=== PATIENT | female | born 1960 | race Caucasian/White ===

== ENCOUNTER 2017-10-24 10:13 | Observation (INO) | payer MEDICAID, SELFPAY ==
[2017-10-24] VITALS (13 sets, daily range): BP systolic 106–150; BP diastolic 62–85; PULSE 57–94; RESP 14–18; TEMP 36.2–36.9; O2SAT 91–98; BMI 32.4; BMI 32.3
--- NOTE | 2017-10-24 10:34 | EKG12_ITS ---
Test Reason : DIZZINESS Blood Pressure : / mmHG Vent. Rate : 075 BPM Atrial Rate : 075 BPM P-R Int : 160 ms QRS Dur : 088 ms QT Int : 394 ms P-R-T Axes : 057 070 036 degrees QTc Int : 439 ms Normal sinus rhythm Low voltage QRS (LIMB LEADS) Confirmed by JODY WHITMORE, MARIAM ([id number]), scientific publications editor SEPIDEH VERDE ([id number]) on 10/28/2017 2:16:49 PM Referred By: SHARON Confirmed By:MARIAM VERA MD
--- NOTE | 2017-10-24 10:34 | CT_ITS ---
STUDY: CT BRAIN WITHOUT CONTRAST REASON FOR EXAM: Female, 56 years old. Dizziness and headaches RADIATION DOSAGE (If Supplied By Facility): CTDIvol = ( 44.99 ) mGy, DLP = ( 745.49 ) mGycm TECHNIQUE: Transaxial CT imaging of the brain was performed without administration of intravenous contrast material. Individualized dose optimization techniques were used for this CT. COMPARISON: None. FINDINGS: No evidence for shift of midline structures, mass effect or compression of ventricles noted. Low-attenuation area in noted in the right cerebellum measuring approximately 1.3 cm possibly subacute infarct however underlying mass is not excluded. Please consider MRI exam. The ventricular system appears unremarkable. Basal cisterns are patent. No acute intra-articular extra-axial hemorrhage. Calvarium is intact. Visualized paranasal sinuses demonstrate minimal mucosal thickening. The mastoid air cells are clear. IMPRESSION: Approximately 1.3 cm low-attenuation focus in the right posterior medial cerebellar possibly subacute infarct however underlying mass is not excluded. Please consider MRI exam of the brain with and without IV contrast. No evidence for intracranial hemorrhage. No seen on shift of midline structures or mass effect Electronically Signed: Sony Hays, at 12:01 EDT Tel , Service support , CT/Brain/Head without Contrast
[2017-10-24] MEDS: Meclizine HCl 25 MG Tablet PO ×2 (11:02→17:20)
[2017-10-24] MEDS: 0.9% Normal Saline 1,000 ML 150 ML IV (11:02)
[2017-10-24] MEDS: Ondansetron 4 MG/2 ML Vial IV (11:02)
[2017-10-24 11:18] LABS: Absolute Lymphocyte Count 1.89 X10^3/ul (0.83-4.51); Absolute Neutrophil Count 6.6 X10^3/uL (2.0-7.7); Basophil# 0.03 X10^3/uL; Basophil% 0.3 % (0-1); Eosinophil# 0.05 X10^3/uL; Eosinophils% 0.6 % (0-5); Hematocrit 41.8 % (37-47); Hemoglobin 14.4 g/dl (12.0-15.0); Lymphocyte # 1.89 X10^3/ul (4.0); Lymphocyte % 21.1 % (19-41); Mean Corp Hgb Conc 34.4 g/gl (32-36); Mean Corpuscular Hgb 29.9 pg (27.0-32.0); Mean Corpuscular Volume 86.7 fL (81-99); Mean Platelet Vol. 9.3 fl (6.2-12.0); Monocyte# 0.38 X10^3/uL; Monocyte% 4.2 % (0-10); Neutrophil % 73.8 % (47-70); Platelet Count 317 K/mm3 (150-450); RBC Distribution Width CV 13.3 % (11.6-14.6); RBC Distribution Width SD 41.8 fl (35.1-43.9); Red Blood Count 4.82 M/mm3 (4.2-5.4)
[2017-10-24 11:21] LABS: POSITIVE COUNT NO; POSITIVE DIFFERENTIAL NO; POSITIVE MORPHOLOGY NO
[2017-10-24 11:34] LABS: Anion Gap 7 (5-15); BUN 17 mg/dL (7-18); BUN/Creat Ratio 17.5 RATIO (10-20); Calcium,Total 9.3 mg/dL (8.5-10.1); Chloride 106 mmol/L (98-107); Creatinine, Serum 0.97 mg/dL (0.55-1.02); EST Glomerular Filtration Rate 63 mL/min (>60); Est Glom Filt Rate - Afr Amer 76 mL/min (>60); Estimated Creatinine Clearance 56.89 ml/min; Glucose 116 mg/dL (74-106); Potassium 3.5 mmol/L (3.5-5.1); Sodium Level 138 mmol/L (136-145)
[2017-10-24] MEDS: Acetaminophen 325 MG Tablet 650 MG PO (12:02)
--- NOTE | 2017-10-24 12:17 | ED.DCSUM_ITS ---
- ER Visit Summary Date of Service: 10/24/17 Chief Complaint: [Dizziness] History of Present Illness: The patient is a 56 F [presents to the emergency department complaint of dizziness that started around 6 AM. Patient states that she woke up with the symptoms. She was initially dizzy when she woke up and when she sat on the side of the bed. Patient describes nausea with it. Patient described feeling somewhat off balance. She has not had symptoms like this before. No recent illness. Patient denies any falls or head injuries. Patient has difficulty with speech or vision.] Physical Examination: [HEENT-PERRLA, EOMI. Cranial nerves II through XII grossly intact. TMs clear. Mucous membranes moist. No adenopathy. Cardiovascular-regular rate and rhythm without murmur or ectopy Lungs-clear to auscultation, chest wall stable without crepitus or subcu emphysema Abdomen-normoactive bowel sounds, soft, nontender, no rebound or rigidity, no peritoneal signs. Neuro sbnx-qhcpsa-anmf and heel to wu testing within normal limits, negative Romberg, negative for drift, fundi benign. NIH stroke scale is 0. Patient had a Hallpike maneuver performed which did elicit nystagmus when patient looking to the left and right. Extremities-intact ?4, normal range of motion, normal pulses, atraumatic] Test Results: [CT scan of the brain without contrast read by radiology as 1.3 cm low-attenuation focus in the right cerebellum cannot rule out subacute infarct versus mass and recommended obtaining MRI of the brain with and without contrast. EKG obtained showed sinus rhythm with a ventricular rate 75 bpm. Chemistries were unremarkable. CBC with differential unremarkable. Troponin was less than 0.015.] Emergency Department Course and Treatment: [Patient is not a thrombolytic candidate as it is unclear when symptoms began I saw her at 1026 and she had had symptoms at that point for 4-1/2 hours. Patient also woke up with symptoms. NIH stroke scale also is 0 here. Patient case discussed with hospitalist will he evaluate patient and admit to hospital for further workup.] Patient was medicated with Antivert and did have good symptomatic relief of her dizziness. Still feeling slightly dizzy but much improved. Treatment Plan: [Admit for further workup including MRI brain.] Disposition: [Admit] Impression: [Dizziness/vertigo-rule out stroke versus cerebellar mass] This note was generated with [employer] dictation software. It may contain incorrect words, spelling, and punctuation that were not noted in review of the chart prior to signing ED Disposition - Plan for ED Patient: Chief Complaint: Dizziness Referrals: Kareen Cooper MD [Primary Care Provider] -
--- NOTE | 2017-10-24 12:28 | HP.PCM_ITS ---
Problem List (1) HTN (hypertension) Status: Chronic (2) HLD (hyperlipidemia) Status: Chronic (3) Vertigo Status: Acute (4) Allergic rhinitis Status: Chronic (5) Chronic migraine Status: Chronic (6) Tobacco dependence Status: Chronic History of Present Illness Date of Admission: 10/24/17 Chief Complaint: Dizziness, vertigo. The patient is a 56 year old F who presents to the emergency room with dizziness which began this morning. Patient states she felt like she was going to pass out. Complains of headache although she states she does get migraines intermittently associated with rain. She denies blurred vision, slurred speech , weakness. She states last summer she had similar symptoms and came to the emergency room where she was told she was dehydrated and to drink extra fluids during the warm weather. She states she attempted to drink fluids this morning with no improvement and dizziness. She denies syncope. Denies chest pain, shortness of breath. She has a past medical history of hypertension, hyperlipidemia, tobacco dependence, allergic rhinitis, chronic migraines. Past Medical History Past Medical History (Chronic Problems): Chronic Problems HTN (hypertension) (Chronic) HLD (hyperlipidemia) (Chronic) Allergic rhinitis (Chronic) Chronic migraine (Chronic) Tobacco dependence (Chronic) Allergies meloxicam Allergy (Verified 10/24/17 10:17) Hives Home Medications: Ambulatory Orders Medication Instructions Recorded Lisinopril/Hydrochlorothiazide 1 each PO DAILY 05/09/15 [Zestoretic 20-12.5 mg Tablet] Lovastatin [Mevacor] 20 mg PO DAILY 05/09/15 Naproxen [Naprosyn] 250 mg PO DAILY PRN PRN 05/09/15 Tylenol Pm Ex-Strength Caplet 2 tab PO QHS PRN 10/24/17 Surgical History: no surgical history Psychiatric History: No pertinent psych hx Lives: Spouse/ Significant Other Smoking Status: Current every day smoker Alcohol: None Drugs: None - *Family History Maternal History Items: No pertinent history Paternal History Items: Unknown - Father , unknown cause. Review of Systems Constitutional: Denies: Chills, Fever, Weight Change HEENT: Reports: Head Aches. Denies: Sinus Congestion, Sinus Drainage Cardiovascular: Denies: Chest Pain, Palpitations Respiratory: Denies: Cough, Shortness of breath at rest, Sputum production Gastrointestinal: Denies: Abdominal Pain, Nausea, Vomiting Genitourinary: Denies: Dysuria Musculoskeletal: Denies: Joint Pain, Joint Tenderness Skin: Denies: Rash, Wounds Neurological: Reports: - - Dizziness. Denies: Blurred vision, Slurred speech, Focal weakness, Numbness, Tingling Psychiatric: Denies: Anxiety, Depression, Homicidal Ideations, Suicidal Ideations Hematologic/ Lymphatic: Denies: Easy Bruising, Easy Bleeding VTE Information - Inpt Only VTE Present on Admission: No VTE Mechan Device Prophylaxis: None VTE Pharm Prophylaxis ordered?: Yes Patient Problems: Active and Suspected Problems Vertigo (Acute) - Physical Exam General: Alert, Oriented x3, Cooperative HEENT: Atraumatic, PERRLA, EOMI, Normocephalic Neck: Supple, No JVD, Negative Carotid Bruits Lungs: Clear to auscultation, Normal air movement Cardiovascular: Regular rate, Regular Rhythm, Normal S1, Normal S2, No murmurs Abdomen: Bowel Sounds Present, Soft, Non Tender, Non-Distended Extremities: No clubbing, No cyanosis, No edema, Capillary Refill Less than 3 Seconds Skin: No rashes, No breakdown Musculoskeletal: No Tenderness to Palpation of Joints or Extremities Neurological: Cranial nerves II-XII grossly intact, Neuro grossly intact Psych/Mental Status: Normal Affect, Appropriate Vital Signs Temp Pulse Resp BP Pulse Ox 98.0 F 80 18 129/81 H 93 10/24/17 10:14 10/24/17 10:17 10/24/17 10:17 10/24/17 10:17 10/24/17 10:17 Oxygen Delivery Method Room Air Weight: 88.451 kg Body Mass Index (BMI) 32.4 Laboratory Tests Past 24 Hrs 10/24/17 10/24/17 11:05 11:05 WBC 9.0 RBC 4.82 Hgb 14.4 Hct 41.8 MCV 86.7 MCH 29.9 MCHC 34.4 RDW 13.3 RDW Differential 41.8 Plt Count 317 MPV 9.3 Immature Gran % (Auto) 0.000 Neut % (Auto) 73.8 H Lymph % (Auto) 21.1 [place] % (Auto) 4.2 Eos % (Auto) 0.6 Baso % (Auto) 0.3 Absolute Neuts (auto) 6.6 Absolute Lymphs (auto) 1.89 Total Counted Not Reportable Sodium 138 Potassium 3.5 Chloride 106 Carbon Dioxide 25.0 Anion Gap 7 BUN 17 Creatinine 0.97 Estim Creat Clear Calc 56.89 Est GFR (MDRD) Af Amer 76 Est GFR (MDRD) Non-Af 63 BUN/Creatinine Ratio 17.5 Glucose 116 H Calcium 9.3 Troponin I < 0.015 Assessment/Plan Active and Suspected Problems Vertigo (Acute) 1. Vertigo, dizziness-rule out stroke versus cerebellar mass. Brain CT shows low-attenuation area noted in the right cerebellum measuring approximately 1.3 cm. Possibly subacute infarct however underlying mass cannot be excluded. MRI ordered and pending. Scheduled meclizine. Zofran as needed. Continue aspirin , statin. Obtain echocardiogram. Neurology consulted. [facility]/OT/[facility]. 2. Hypertension-stable, continue home lisinopril/HCTZ regimen. 3. Hyperlipidemia-home statin regimen increased. Check lipid panel. 4. Tobacco dependence-encourage smoking cessation. Patient declines nicotine replacement patch. 5. Allergic rhinitis-not on daily regimen. 6. Chronic migraines-as needed pain regimen. DVT prophylaxis-Lovenox subcu. This patient was seen by ESTIVEN Tyler under the supervision of Dr. Fatima.
--- NOTE | 2017-10-24 14:42 | CT_ITS ---
STUDY: CT BRAIN WITH CONTRAST REASON FOR EXAM: Female, 56 years old. Possible mass RADIATION DOSAGE (If Supplied By Facility): CTDIvol = ( 44.99 ) mGy, DLP = ( 728.62 ) mGycm TECHNIQUE: Transaxial CT imaging of the brain was performed post contrast administration. The examination was performed with intravenous administration of 75mL ml of Isovue 300 contrast material. Individualized dose optimization techniques were used for this CT. COMPARISON: Unenhanced CAT scan on October 24, 2017 FINDINGS: Normal soft tissue structures. Normal calvarium. Normal size ventricles and extra-axial spaces for the patient's age. Normal white matter tracts of the cerebral hemispheres. Normal basal ganglia and thalami. Normal brainstem. There is focal hypoattenuation within the right cerebellar hemisphere without associated mass effect and which does not appear to enhance and most likely represents ischemic changes. There is no intracranial hemorrhage. There are no findings of an acute ischemic infarction. Minor mucosal thickening within the maxillary sinuses. CT/Brain/Head WITH Contrast IMPRESSION: Probable ischemic changes within the right cerebellar hemisphere. MRI would be helpful for further assessment if indicated Electronically Signed: José Jay MD at 23:24 EDT , Service support ,
[2017-10-24] MEDS: 0.9% Normal Saline 1,000 ML 100 ML IV (15:02)
[2017-10-24 15:28] LABS: Hemoglobin A1c 5.7 % (4.2-6.3)
[2017-10-24 15:30] LABS: Magnesium 1.8 mg/dL (1.6-2.6); Thyroid Stim Hormone (TSH) 1.34 uIU/mL (0.358-3.74)
[2017-10-24] MEDS: Famotidine 20 MG Tablet PO (20:38)
[2017-10-24] MEDS: Aspirin 81 MG TAB.CHEW PO (20:38)
[2017-10-25] VITALS (9 sets, daily range): BP systolic 102–129; BP diastolic 49–83; PULSE 58–74; RESP 16; TEMP 36.7–36.8; O2SAT 96–98; BMI 32.3
[2017-10-25] MEDS: Meclizine HCl 25 MG Tablet PO ×2 (00:51→05:16)
[2017-10-25] MEDS: 0.9% Normal Saline 1,000 ML 100 ML IV (01:33)
[2017-10-25 06:57] LABS: Hematocrit 38.6 % (37-47); Hemoglobin 13.1 g/dl (12.0-15.0); Mean Corp Hgb Conc 33.9 g/gl (32-36); Mean Corpuscular Hgb 30.1 pg (27.0-32.0); Mean Corpuscular Volume 88.7 fL (81-99); Mean Platelet Vol. 9.7 fl (6.2-12.0); Platelet Count 296 K/mm3 (150-450); RBC Distribution Width CV 13.5 % (11.6-14.6); RBC Distribution Width SD 43.4 fl (35.1-43.9); Red Blood Count 4.35 M/mm3 (4.2-5.4); White Blood Count 8.4 K/mm3 (4.4-11.0)
[2017-10-25 07:13] LABS: Scan Indicated on CBC? Y/N NO
[2017-10-25 07:33] LABS: Anion Gap 5 (5-15); BUN 14 mg/dL (7-18); BUN/Creat Ratio 16.7 RATIO (10-20); Calcium,Total 8.5 mg/dL (8.5-10.1); Chloride 114 mmol/L (98-107); Cholesterol 193 mg/dL (200); Creatinine, Serum 0.84 mg/dL (0.55-1.02); EST Glomerular Filtration Rate 74 mL/min (>60); Est Glom Filt Rate - Afr Amer 90 mL/min (>60); Estimated Creatinine Clearance 65.69 ml/min; Glucose 83 mg/dL (74-106); High Density Lipoprotein 42 mg/dL; Potassium 3.8 mmol/L (3.5-5.1); Sodium Level 143 mmol/L (136-145); Triglycerides 205 mg/dL; Very Low Density Lipoprotein 41 mg/dL (5-40)
[2017-10-25] MEDS: Aspirin 81 MG TAB.CHEW PO (07:52)
--- NOTE | 2017-10-25 09:04 | MRI_ITS ---
STUDY: MRA OF THE HEAD WITHOUT CONTRAST REASON FOR EXAM: Female, 56 years old. CVA. Dizziness TECHNIQUE: 3-D rxpw-ur-ksfbih (TOF) imaging was performed with MIPs. The study was performed unenhanced. COMPARISON: None. FINDINGS: Petrous, cavernous and supraclinoid segments of the internal carotid arteries are patent Middle and anterior cerebral arteries are patent. Posterior circulation: Anterolateral segments of the vertebral arteries are patent the vertebrobasilar junction is patent. The basilar artery is patent posterior cerebral arteries are patent. The superior cerebellar arteries are patent. Anterior inferior cerebellar arteries are patent. Somewhat motion degraded MRA examination of the head IMPRESSION: No evidence for intracranial large vessel occlusion seen Electronically Signed: Sony Hays, at 10:39 EDT Tel , Service support , MRI/MRA Head ONLY without Contrast
--- NOTE | 2017-10-25 09:04 | MRI_ITS ---
STUDY: MRA NECK WITH AND WITHOUT CONTRAST REASON FOR EXAM: Female, 56 years old. TECHNIQUE: 3-D evhr-qc-xylorx (TOF) imaging was performed in an 1.5 T MRI scanner. 10 ml of Gadavist was administered for the contrast enhanced images. COMPARISON: None. FINDINGS: RIGHT CAROTID ARTERIES: Normal right common carotid artery (CCA). Normal right common carotid bulb. Normal origin of the right internal carotid (ICA) artery without a hemodynamically significant stenosis. Normal visualized cervical portion of the right internal carotid artery. Normal origin of the right external carotid artery (ECA). LEFT CAROTID ARTERIES: Normal left common carotid artery (CCA). Normal left common carotid bulb. Normal origin of the left internal carotid (ICA) artery without a hemodynamically significant stenosis. Normal visualized cervical portion of the left internal carotid artery. Normal origin of the left external carotid artery (ECA). VERTEBRAL ARTERIES: Narrowing at the origin of the left vertebral artery seen. Remaining segments of the vertebral arteries are patent. The right vertebral artery is patent. MRI/MRA Neck WITH and W/O Contrast IMPRESSION: No evidence for cervical carotid or vertebral artery occlusion. Mild apparent narrowing at the origin of the left vertebral artery. Electronically Signed: Sony Hays, at 10:45 EDT Tel , Service support ,
--- NOTE | 2017-10-25 09:16 | MRI_ITS ---
STUDY: MRI BRAIN WITH AND WITHOUT CONTRAST REASON FOR EXAM: Female, 56 years old. Dizziness TECHNIQUE: Standardized multiplanar fat and water weighted pulse sequences were obtained. 10 ml of Gadavist contrast material was administered intravenously for the contrast portion of the examination. COMPARISON: CT examination of the head October 24, 2017 FINDINGS: No evidence for shift of midline structures, mass effect or compression of ventricles noted. No acute intra-axial or extra-axial hemorrhage. No evidence for intracranial fluid collections. Ventricular system appears unremarkable. Basal cisterns are patent. Encephalomalacia and gliosis in the right cerebellum likely chronic small infarct. Partially empty sella noted. Scattered foci of T2/FLAIR hyperintensity in the periventricular and subcortical white matter which are nonspecific in imaging appearance however most likely related with chronic small vessel disease. Skull base vascular flow voids are patent. Mild mucosal thickening of the ethmoid air cells and the maxillary sinuses. No evidence for cerebellar tonsillar herniation. No evidence for acute or subacute ischemic insult. No evidence for intracranial enhancing mass or acute hemorrhage. Mild chronic small vessel disease. 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 Electronically Signed: Sony Hays, at 10:53 EDT Tel , Service support , MRI/Brain W/WO Contrast
--- NOTE | 2017-10-25 10:49 | PCM.DC ---
- Discharge Diagnoses Current Active Problems: Current Active and Chronic Problems HTN (hypertension) (Chronic) HLD (hyperlipidemia) (Chronic) Vertigo (Acute) Allergic rhinitis (Chronic) Chronic migraine (Chronic) Tobacco dependence (Chronic) You will use the following diet at home:: Cardiac Discharge Activity: Return to Normal Activity Call your doctor if you observe: Numbness or Tingling, Shortness of breath, Dizziness, Fainting spells, Chest pain, Increased palpitations (irregular heartbeat) Allergies/Adverse Reactions: Allergies meloxicam Allergy (Verified 10/24/17 10:17) Hives Medications to take at Discharge Lisinopril/Hydrochlorothiazide [Zestoretic 20-12.5 mg Tablet] 1 each PO DAILY 05/09/15 Naproxen [Naprosyn] 500 mg PO DAILY PRN PRN 05/09/15 Aspirin [Aspirin, Baby] 81 mg PO DAILY@0800 #30 tab.chew 10/25/17 Atorvastatin Calcium [Lipitor] 80 mg PO DAILY #30 tab 10/25/17 The following prescriptions were given: Aspirin [Aspirin, Baby] 81 mg PO DAILY@0800 #30 tab.chew Atorvastatin Calcium [Lipitor] 80 mg PO DAILY #30 tab Primary Care Physician: Kareen Cooper MD [Primary Care Provider] - Please follow up with your Primary Care Physician in: 1 Week Please Follow Up With: Alisa Henley MD When: 2-4 Weeks Proposed Discharge Date: 10/25/17
--- NOTE | 2017-10-25 10:51 | PCM.DC.SUM ---
Discharge Date and Diagnosis Date of Admission: 10/24/17 Date of Discharge: 10/25/17 - Primary Discharge Diagnosis Active and Suspected Problems 1. Vertigo, dizziness-acute CVA ruled out. Possible TIA versus atypical migraine. - Secondary Discharge Diagnosis Chronic Problems HTN (hypertension) (Chronic) HLD (hyperlipidemia) (Chronic) Allergic rhinitis (Chronic) Chronic migraine (Chronic) Tobacco dependence (Chronic) Hospital Course and Treatment Imaging Results: Diagnostic Data Brain CT 10/24/17 14:42 IMPRESSION: Probable ischemic changes within the right cerebellar hemisphere. MRI would be helpful for further assessment if indicated Electronically Signed: José Jay MD at 23:24 EDT , Service support , Head MRA 10/25/17 09:04 Neck MRA 10/25/17 09:04 IMPRESSION: No evidence for cervical carotid or vertebral artery occlusion. Mild apparent narrowing at the origin of the left vertebral artery. Electronically Signed: Sony Hays at 10:45 EDT Tel , Service support , Brain MRI 10/25/17 09:16 Dr. Mauro- Neurology Operations: None Procedures: None Summary of Care Provided: Patient is a 56-year-old female admitted 10/24/2017 due to dizziness, vertigo. She has a past medical history of hypertension, hyperlipidemia, tobacco dependence, allergic rhinitis, chronic migraines. 1. Vertigo, dizziness-acute CVA ruled out. Suspect TIA versus atypical migraine. Patient has a history of migraines which she states occur before it rains. Brain CT shows low-attenuation area noted in the right cerebellum measuring approximately 1.3 cm. Possibly subacute infarct however underlying mass cannot be excluded. Neurology consulted. MRI of brain unremarkable. MRA of head and neck without significant stenosis. Patient will continue aspirin and statin at discharge. Echocardiogram ordered but not completed prior to discharge. Recommend echocardiogram as outpatient to be ordered by primary care physician or neurology. Patient will follow-up with primary care physician in 1 week. Follow-up with neurology in 2-4 weeks. Patient denies further dizziness at discharge. Neuro grossly intact. 2. Hypertension-stable, continue home lisinopril/HCTZ regimen. 3. Hyperlipidemia-home statin regimen increased to 80 mg daily. 4. Tobacco dependence-encourage smoking cessation. 5. Allergic rhinitis-not on daily regimen. 6. Chronic migraines General: Alert, Oriented x3, Cooperative HEENT: Atraumatic, PERRLA, EOMI, Normocephalic Neck: Supple, No JVD, Negative Carotid Bruits Lungs: Clear to auscultation, Normal air movement Cardiovascular: Regular rate, Regular Rhythm, Normal S1, Normal S2, No murmurs Abdomen: Bowel Sounds Present, Soft, Non Tender, Non-Distended Extremities: No clubbing, No cyanosis, No edema, Capillary Refill Less than 3 Seconds Skin: No rashes, No breakdown Musculoskeletal: No Tenderness to Palpation of Joints or Extremities Neurological: Cranial nerves II-XII grossly intact, Neuro grossly intact Psych/Mental Status: Normal Affect, Appropriate Patient seen exam prior to discharge. Physical assessment as noted above. Patient stable for discharge home with further follow-up primary care physician and neurology. This patient was seen by ESTIVEN Tyler under the supervision of Dr. Fatima. Discharge Diet: Low fat/ Low Cholesterol Discharge Activity: Return to Normal Activity Call your doctor if you observe: Numbness or Tingling, Shortness of breath, Dizziness, Fainting spells, Chest pain, Increased palpitations (irregular heartbeat) Home Medications: Medications to take at Discharge Lisinopril/Hydrochlorothiazide [Zestoretic 20-12.5 mg Tablet] 1 each PO DAILY 05/09/15 Naproxen [Naprosyn] 500 mg PO DAILY PRN PRN 05/09/15 Aspirin [Aspirin, Baby] 81 mg PO DAILY@0800 #30 tab.chew 10/25/17 Atorvastatin Calcium [Lipitor] 80 mg PO DAILY #30 tab 10/25/17 Following Prescrptions Were Given to Patient: Aspirin [Aspirin, Baby] 81 mg PO DAILY@0800 #30 tab.chew Atorvastatin Calcium [Lipitor] 80 mg PO DAILY #30 tab Primary Care Physician: Kareen Cooper MD [Primary Care Provider] - Please follow up with your Primary Care Physician in: 1 Week Please Follow Up With: Alisa Henley MD When: 2-4 Weeks Disposition: Home Minutes spent on discharge:: 35 Patient Condition:: Stable Medical Necessity - Tobacco Use Smoking Status: Current every day smoker Meaningful Use Info Meaningful Use Diagnoses (Choose all that apply): None applicable
--- NOTE | 2017-10-25 11:04 | DS.PCM_ITS ---
Discharge Date and Diagnosis Date of Admission: 10/24/17 Date of Discharge: 10/25/17 - Primary Discharge Diagnosis Active and Suspected Problems 1. Vertigo, dizziness-acute CVA ruled out. Possible TIA versus atypical migraine. - Secondary Discharge Diagnosis Chronic Problems HTN (hypertension) (Chronic) HLD (hyperlipidemia) (Chronic) Allergic rhinitis (Chronic) Chronic migraine (Chronic) Tobacco dependence (Chronic) Hospital Course and Treatment Imaging Results: Diagnostic Data Brain CT 10/24/17 14:42 IMPRESSION: Probable ischemic changes within the right cerebellar hemisphere. MRI would be helpful for further assessment if indicated Electronically Signed: José Jay MD at 23:24 EDT , Service support , Head MRA 10/25/17 09:04 Neck MRA 10/25/17 09:04 IMPRESSION: No evidence for cervical carotid or vertebral artery occlusion. Mild apparent narrowing at the origin of the left vertebral artery. Electronically Signed: Sony Hays at 10:45 EDT Tel , Service support , Brain MRI 10/25/17 09:16 Dr. Mauro- Neurology Operations: None Procedures: None Summary of Care Provided: Patient is a 56-year-old female admitted 10/24/2017 due to dizziness, vertigo. She has a past medical history of hypertension, hyperlipidemia, tobacco dependence, allergic rhinitis, chronic migraines. 1. Vertigo, dizziness-acute CVA ruled out. Suspect TIA versus atypical migraine. Patient has a history of migraines which she states occur before it rains. Brain CT shows low-attenuation area noted in the right cerebellum measuring approximately 1.3 cm. Possibly subacute infarct however underlying mass cannot be excluded. Neurology consulted. MRI of brain unremarkable. MRA of head and neck without significant stenosis. Patient will continue aspirin and statin at discharge. Echocardiogram ordered but not completed prior to discharge. Recommend echocardiogram as outpatient to be ordered by primary care physician or neurology. Patient will follow-up with primary care physician in 1 week. Follow-up with neurology in 2-4 weeks. Patient denies further dizziness at discharge. Neuro grossly intact. 2. Hypertension-stable, continue home lisinopril/HCTZ regimen. 3. Hyperlipidemia-home statin regimen increased to 80 mg daily. 4. Tobacco dependence-encourage smoking cessation. 5. Allergic rhinitis-not on daily regimen. 6. Chronic migraines General: Alert, Oriented x3, Cooperative HEENT: Atraumatic, PERRLA, EOMI, Normocephalic Neck: Supple, No JVD, Negative Carotid Bruits Lungs: Clear to auscultation, Normal air movement Cardiovascular: Regular rate, Regular Rhythm, Normal S1, Normal S2, No murmurs Abdomen: Bowel Sounds Present, Soft, Non Tender, Non-Distended Extremities: No clubbing, No cyanosis, No edema, Capillary Refill Less than 3 Seconds Skin: No rashes, No breakdown Musculoskeletal: No Tenderness to Palpation of Joints or Extremities Neurological: Cranial nerves II-XII grossly intact, Neuro grossly intact Psych/Mental Status: Normal Affect, Appropriate Patient seen exam prior to discharge. Physical assessment as noted above. Patient stable for discharge home with further follow-up primary care physician and neurology. This patient was seen by ESTIVEN Tyler under the supervision of Dr. Fatima. Discharge Diet: Low fat/ Low Cholesterol Discharge Activity: Return to Normal Activity Call your doctor if you observe: Numbness or Tingling, Shortness of breath, Dizziness, Fainting spells, Chest pain, Increased palpitations (irregular heartbeat) Home Medications: Medications to take at Discharge Lisinopril/Hydrochlorothiazide [Zestoretic 20-12.5 mg Tablet] 1 each PO DAILY Naproxen [Naprosyn] 500 mg PO DAILY PRN PRN 05/09/15 Aspirin [Aspirin, Baby] 81 mg PO DAILY@0800 #30 tab.chew 10/25/17 Atorvastatin Calcium [Lipitor] 80 mg PO DAILY #30 tab 10/25/17 Following Prescrptions Were Given to Patient: Aspirin [Aspirin, Baby] 81 mg PO DAILY@0800 #30 tab.chew Atorvastatin Calcium [Lipitor] 80 mg PO DAILY #30 tab Primary Care Physician: Kareen Cooper MD [Primary Care Provider] - Please follow up with your Primary Care Physician in: 1 Week Please Follow Up With: Alisa Henley MD When: 2-4 Weeks Disposition: Home Minutes spent on discharge:: 35 Patient Condition:: Stable Medical Necessity - Tobacco Use Smoking Status: Current every day smoker Meaningful Use Info Meaningful Use Diagnoses (Choose all that apply): None applicable
[2017-10-25] MEDS: Atorvastatin Calcium 80 MG Tablet PO (11:21)
== END 2017-10-25 11:25 | disposition home or self-care (01) ==
LOC: ED 12:36 → PCU 13:38
PROVIDERS: Admitting Provider Family Medicine; Emergency Provider Emergency Medicine; Family Provider Internal Medicine; PCP Internal Medicine; Visit Provider Family Medicine
DX: R42 Dizziness and giddiness (principal); I10 Essential (primary) hypertension; E78.5 Hyperlipidemia, unspecified; Z79.899 Other long term (current) drug therapy; E66.9 Obesity, unspecified; Z68.32 Body mass index [BMI] 32.0-32.9, adult; Z71.3 Dietary counseling and surveillance; F17.200 Nicotine dependence, unspecified, uncomplicated; G43.909 Migraine, unspecified, not intractable, without status migrainosus
CPT/HCPCS: 70450; 70460; 70544; 70549; 70553; 80048; 80061; 83036; 83735; 84443; 84484; 85025; 85027; 92523; 93005; 96361; 96374; 97162; 97166; 97802; 99218; 99285; 99406; A9585; J7030; Q9967; A4216; G0378; J2405

== ENCOUNTER 2021-12-31 18:32 | Emergency (ER) | payer MEDICAID, SELFPAY ==
[2021-12-31 18:32] VITALS: BP 194/175; PULSE 106; RESP 17; TEMP 36.3; O2SAT 98; BMI 32.5
--- NOTE | 2021-12-31 19:18 | EKG12_ITS ---
Test Reason : cp Blood Pressure : / mmHG Vent. Rate : 095 BPM Atrial Rate : 095 BPM P-R Int : 156 ms QRS Dur : 080 ms QT Int : 344 ms P-R-T Axes : 062 089 043 degrees QTc Int : 432 ms Normal sinus rhythm Nonspecific ST abnormality Abnormal ECG Confirmed by ADALBERTO WHITMORE, ABBE ([id number]), department editor CONSUELO WILLAMS ([id number]) on 01/02/2022 2:01:12 PM Referred By: Mansoor Confirmed By:BABE GLOVER MD
--- NOTE | 2021-12-31 19:20 | EDS_ITS ---
HPI History of Present Illness Chief Complaint: Chest Pain Informant: patient Narrative Narrative: 61-year-old female arriving to the emergency department chief complaint of chest pain. Patient states that at 0400 hrs. this morning she developed a mid low sternal chest pain described as a constant ache. She states it becomes sharp with deep breathing. She does not feel short of breath. She denies any rashes belching. She notes a chronic cough due to allergies. No fevers. No DVT PE risk factors. She is a smoker the history of hypertension and hypercholesterolemia. No change in exercise tolerance. Other than deep breathing nothing seems to make it better or worse [facility] Medical History High cholesterol HTN (hypertension) Home Medications lisinopril 20 mg-hydrochlorothiazide 12.5 mg tablet (Zestoretic) 1 ea PO DAILY blood pressure 05/09/15 [History Last Taken 10/24/17 07:00] naproxen 250 mg tablet 500 mg PO DAILY PRN PRN Pain 05/09/15 [History Last Taken Unknown] aspirin 81 mg chewable tablet 81 mg PO DAILY@0800 ##30 10/25/17 [Rx Last Taken Unknown] atorvastatin 80 mg tablet 80 mg PO DAILY #30 tabs 10/25/17 [Rx Last Taken Unknown] Allergy/AdvReac Type Severity Reaction Status Date / Time meloxicam Allergy Hives Verified 12/31/21 18:36 Surgical History no surgical history no surgical history Social History (Updated 12/31/21 @ 19:[address] Samuel Oliva DO) Smoking Status: Current every day smoker tobacco type: cigarettes substance use type: does not use ROS ROS ED Constitutional Constitutional ED: Denies chills, fever(s) or weight loss Eyes Eyes: Denies change in vision or diplopia ENT ENT ED: Denies ear pain, rhinorrhea or sore throat Cardiovascular Cardiovascular: Reports chest pain; Denies orthopnea, palpitations or racing heartbeat Respiratory/Chest Respiratory/Chest: Denies cough, dyspnea, dyspnea on exertion or orthopnea Gastrointestinal Gastrointestinal: Denies abdominal pain, diarrhea, nausea or vomiting Genitourinary Genitourinary ED: Denies dysuria, hematuria or urinary frequency Musculoskeletal Musculoskeletal: Denies arthralgias or myalgias Integumentary Denies abscess or rash Neurologic Neurologic: Denies headache(s) or weakness Psychiatric Psychiatric: Denies anxiety, depression, suicidal ideation or suicidal thoughts Endocrine Endocrinology: Denies polydipsia, polyphagia or polyuria Allergic/Immunologic Allergic/Immunologic ED: Denies mouth swelling, tongue swelling or urticaria EXAM Physical Exam Const Vital Signs: 12/31/21 18:32 Temperature 97.3 F L Temperature Source Temporal Pulse Rate 106 H Respiratory Rate 17 Blood Pressure 194/175 H Blood Pressure Mean 181 Pulse Ox 98 Oxygen Delivery Method Room Air Positive well nourished and well developed General Appearance ED: well developed HEENT Reports normocephalic, head/scalp atraumatic and moist mucous membranes Eyes PERRL and EOMs intact bilaterally Neck no lymphadenopathy, supple and no JVD Resp normal respiratory effort and clear to auscultation bilaterally Cardio regular rate, regular rhythm and no murmurs GI normal to inspection, nondistended, normoactive bowel sounds and non-tender Palpation: soft Back/Spine no CVA tenderness and normal ROM Extremity normal to inspection General Extremety ED: Negative for edema General Extremity: Negative for edema Neuro oriented x3 and CN's II-XII intact bilaterally Sensorium / Orientation: alert Motor Exam: strength 5/5 throughout Psych mental status grossly normal Mood & Affect: Negative for depressed or tearful Skin no rashes or lesions noted and no wounds Heart Score History: Slightly/Non-Suspicious ECG: Normal Age: >/= 65 years Risk Factors: >/= 3 Risk Factors or History of CAD Troponin: </= Normal Limit Score: 4 MDM MDM MDM Narrative Medical decision making narrative: Count elevated 14.2. D-dimer is elevated and does not age-adjusted at 0.85. Her troponin is 4. My interpretation of chest x-ray is no acute process. CTA of the chest is negative for pulmonary embolism or infiltrate just inferior patient received a dose of Toradol. At this point I think the patient can be discharged home. I do not see evidence of ACS given the negative troponin EKG at greater than 12 hours symptom onset. I do not think she has PE or dissection. Certainly would entertain the possibility of pleurisy. Patient states she has had this before and if it does feel similar. Lab Data Attestation: I reviewed the patient's lab results. Labs: Laboratory Results - last 24 hr 12/31/21 12/31/21 12/31/21 18:53 18:53 18:53 WBC 14.2 H RBC 4.71 Hgb 13.6 Hct 40.9 MCV 86.8 MCH 28.9 MCHC 33.3 RDW Std Deviation 43.6 RDW Coeff of Jaelyn 13.7 Plt Count 344 MPV 9.7 Immature Gran % (Auto) 0.400 Neut % (Auto) 63.5 Lymph % (Auto) 28.0 [place] % (Auto) 6.6 Eos % (Auto) 1.1 Baso % (Auto) 0.4 Absolute Neuts (auto) 9.0 H Absolute Lymphs (auto) 3.96 Nucleated RBC % 0 D-Dimer Quant (PE/DVT) 0.85 H* Sodium 138 Potassium 3.6 Chloride 106 Carbon Dioxide 26.0 Anion Gap 6 BUN 11 Creatinine 0.90 Estim Creat Clear Calc 57.57 Est GFR (MDRD) Af Amer 82 Est GFR (MDRD) Non-Af 68 BUN/Creatinine Ratio 12.3 Glucose 113 H Calcium 9.4 Troponin I High Sens 4 Radiography Diagnostic Testing: Clinical Impression(s) from Imaging Studies Chest X-Ray 12/31/21 19:35 IMPRESSION: 1. No radiographic evidence of acute cardiopulmonary disease. Electronically Signed: Enzo Moyer DO at 20:17 EDT , Chest CTA 12/31/21 20:20 IMPRESSION: Normal CTA chest examination, without a demonstrated pulmonary embolism or arterial dissection. Electronically Signed: Enzo Moyer DO at 20:53 EDT , EKG Initial EKG: Comments: Normal sinus rhythm with a ventricular rate of 95 bpm. Discharge Plan Triage Chief Complaint: Chest Pain ED Provider: Samuel Oliva Dx/Rx/DC Orders Clinical Impression: HTN (hypertension), HLD (hyperlipidemia), Tobacco dependence, Chest pain, Pleurisy Instructions: ED Chest Pain, Uncertain Cause, ED Pleurisy Prescriptions: No Action lisinopril-hydrochlorothiazide [Zestoretic] 1 EACH tablet 1 ea PO DAILY Label Comments: naproxen 250 MG tablet 500 mg PO DAILY PRN PRN (Reason: Pain) Label Comments: atorvastatin 80 MG tablet 80 mg PO DAILY Qty: 30 0RF aspirin 81 MG tablet,chewable 81 mg PO DAILY@0800 Qty: 30 0RF Primary Care Provider: Kareen Cooper Referrals: Kareen Cooper MD [Primary Care Provider] - 3-5 Days if not improving Disposition Disposition: Home, Self Care
--- NOTE | 2021-12-31 19:35 | RAD_ITS ---
INDICATION: chest pain EXAMINATION/TECHNIQUE: X-RAY - XR Chest 1 View COMPARISON: None. FINDINGS: LINES/DEVICES: None. LUNGS: Symmetric normal lung volumes. No airspace opacity or abnormal interstitial pattern. No nodule or mass. No pleural effusion or pneumothorax. MEDIASTINUM AND CARDIOVASCULAR STRUCTURES: Normal size and contour of the cardiomediastinal silhouette. No evidence of pulmonary vascular congestion. BONES AND SOFT TISSUES: No fracture or focal osseous lesion. RAD/Chest 1 View (Portable) IMPRESSION: 1. No radiographic evidence of acute cardiopulmonary disease. Electronically Signed: Enzo Moyer DO at 20:17 EDT ,
[2021-12-31] MEDS: Ketorolac 15 MG/ML Vial IV (19:36)
[2021-12-31 19:42] LABS: Absolute Lymphocyte Count 3.96 X10^3/uL (0.83-4.51); Basophil# 0.06 X10^3/uL; Basophil% 0.4 % (0-1); Eosinophil# 0.15 X10^3/uL; Eosinophils% 1.1 % (0-5); Hematocrit 40.9 % (37-47); Hemoglobin 13.6 g/dL (12.0-15.0); Lymphocyte # 3.96 X10^3/ul (0.83-4.51); Mean Corp Hgb Conc 33.3 g/dL (32-36); Mean Corpuscular Hgb 28.9 pg (27.0-32.0); Mean Corpuscular Volume 86.8 fL (81-99); Mean Platelet Vol. 9.7 fl (6.2-12.0); Monocyte# 0.94 X10^3/uL; Monocyte% 6.6 % (0-10); NRBC Flagged by Analyzer 0 % (0-5); Neutrophil % 63.5 % (47-70); Platelet Count 344 K/mm3 (150-450); RBC Distribution Width CV 13.7 % (11.6-14.6); RBC Distribution Width SD 43.6 fl (35.1-43.9); Red Blood Count 4.71 M/mm3 (4.2-5.4); White Blood Count 14.2 K/mm3 (4.4-11.0)
[2021-12-31 19:59] LABS: D-Dimer Quantitative (DVT/PE) 0.85 FEU/ug/m (0.27-0.49)
[2021-12-31 20:10] LABS: Anion Gap 6 (5-15); BUN 11 mg/dL (7-18); BUN/Creat Ratio 12.3 RATIO (10-20); Calcium,Total 9.4 mg/dL (8.5-10.1); Chloride 106 mmol/L (98-107); EST Glomerular Filtration Rate 68 mL/min (>60); Est Glom Filt Rate - Afr Amer 82 mL/min (>60); Estimated Creatinine Clearance 57.57 ml/min; Glucose 113 mg/dL (74-106); Potassium 3.6 mmol/L (3.5-5.1); Sodium Level 138 mmol/L (136-145); Troponin-I HS 4 pg/mL (3.0-54.0)
--- NOTE | 2021-12-31 20:20 | CT_ITS ---
STUDY: CTA CHEST REASON FOR EXAM: Female, 61 years old. CP RADIATION DOSAGE (If Supplied By Facility): CTDIvol = ( 12.53 ) mGy, DLP = ( 561.94 ) mGycm TECHNIQUE: The examination was performed with the intravenous administration of IV 100mL Isovue-370. Post-processing of the angiographic images was performed, with multiplanar reformation and 3D reconstruction. Individualized dose optimization techniques were used for this CT. COMPARISON: 100 mL of ISOVUE-370. FINDINGS: Adequate density of contrast in the pulmonary arteries and no significant motion; quality diagnostic exam. No pulmonary artery filling defect to suggest pulmonary embolism. There is no evidence of right heart strain. Normal size heart. No pericardial fluid. No mediastinal or hilar lymphadenopathy. No mass or filling defect. No bronchiectasis. No peribronchial thickening. Normal lung volumes without airtrapping. No airspace opacity or abnormal interstitial pattern. No nodule or mass. No pleural effusion or pneumothorax. Thyroid gland and base of the neck are within normal limits. No axillary lymphadenopathy. No fracture or focal osseous lesion. Moderate degenerative endplate changes thoracic spine. Upper abdomen is notable for incompletely visualized gallstones. CT/CTA Chest W/WO Contrast IMPRESSION: Normal CTA chest examination, without a demonstrated pulmonary embolism or arterial dissection. Electronically Signed: Enzo Moyer DO at 20:53 EDT ,
[2021-12-31 21:19] VITALS: BP 131/78; PULSE 72; RESP 16; O2SAT 99
== END 2021-12-31 21:20 | disposition home or self-care (01) ==
PROVIDERS: Emergency Provider Emergency Medicine; PCP Internal Medicine; Visit Provider Emergency Medicine
DX: R09.1 Pleurisy (principal); I10 Essential (primary) hypertension; E78.00 Pure hypercholesterolemia, unspecified; F17.210 Nicotine dependence, cigarettes, uncomplicated; Z79.82 Long term (current) use of aspirin; Z79.899 Other long term (current) drug therapy
CPT/HCPCS: 71045; 71275; 80048; 84484; 85025; 85379; 93005; 96374; 99284; Q9967; A4216

== ENCOUNTER 2022-06-26 10:31 | Emergency (ER) | payer MEDICAID, SELFPAY ==
[2022-06-26 10:32] VITALS: BP 162/97; PULSE 110; RESP 20; TEMP 36.4; O2SAT 100; BMI 33.3
[2022-06-26] MEDS: Morphine 4 MG/ML Syringe 6 MG IM (11:33)
[2022-06-26] MEDS: tiZANidine HCl 2 MG Tablet 4 MG PO (12:05)
--- NOTE | 2022-06-26 12:18 | ED.VIS.BACK ---
HPI History of Present Illness Chief Complaint: Back Informant: patient Narrative Narrative: Patient is a 61-year-old female with history of hypertension, hyperlipidemia and chronic migraines as well as tobacco use presenting with left low back pain. She states it started about a week ago but became more sharp and worsening this morning. She developed nausea secondary to the pain. She states it feels like spasms. Does not radiate. She then goes on to states she does have a history of sciatica. She denies any urinary symptoms including frequency, dysuria or hematuria. She denies any numbness or tingling in her legs. She denies any saddle anesthesia. She denies any history of falls or trauma. She does not have any weakness of her legs. Movement seems to make it worse. No report of any fevers. No other complaints at this time. [facility] Medical History Back pain High cholesterol HTN (hypertension) Home Medications lisinopril 20 mg-hydrochlorothiazide 12.5 mg tablet (Zestoretic) 1 ea PO DAILY blood pressure 05/09/15 [History Last Taken 10/24/17 07:00] naproxen 250 mg tablet 500 mg PO DAILY PRN PRN Pain 05/09/15 [History Last Taken Unknown] aspirin 81 mg chewable tablet 81 mg PO DAILY@0800 ##30 10/25/17 [Rx Last Taken Unknown] atorvastatin 80 mg tablet 80 mg PO DAILY #30 tabs 10/25/17 [Rx Last Taken Unknown] prednisone 20 mg tablet 40 mg PO DAILY #10 tabs 06/26/22 [Rx Last Taken Unknown] tizanidine 4 mg capsule 4 mg PO Q8H PRN muscle spasticity #20 caps 06/26/22 [Rx Last Taken Unknown] Allergy/AdvReac Type Severity Reaction Status Date / Time meloxicam Allergy Hives Verified 06/26/22 10:34 Social History Smoking Status: Current every day smoker tobacco type: cigarettes substance use type: does not use ROS ROS ED Constitutional Constitutional ED: Denies chills or fever(s) Eyes Eyes: Denies change in vision Cardiovascular Cardiovascular: Denies chest pain Respiratory/Chest Respiratory/Chest: Denies dyspnea Gastrointestinal Gastrointestinal: Reports nausea; Denies abdominal pain, constipation, diarrhea or vomiting Genitourinary Genitourinary ED: Denies dysuria, hematuria or urinary frequency Musculoskeletal Musculoskeletal: Reports back pain; Denies myalgias Integumentary Denies rash Neurologic Neurologic: Denies paresthesias or weakness Psychiatric Psychiatric: Denies anxiety Hematologic/Lymphatic Hematologic/Lymphatic: Denies easy bleeding or easy bruising EXAM Physical Exam Const Vital Signs: 06/26/22 10:32 06/26/22 14:15 Temperature 97.5 F L Temperature Source Temporal Pulse Rate 110 H 85 Respiratory Rate 20 H Blood Pressure 162/97 H Blood Pressure Mean 118 Pulse Ox 100 93 Oxygen Delivery Method Room Air Positive well nourished and well developed Constitutional Narrative: Uncomfortable appearing secondary to back pain General Appearance ED: well developed HEENT Reports moist mucous membranes Eyes PERRL and EOMs intact bilaterally Neck supple Resp normal respiratory effort and clear to auscultation bilaterally Cardio regular rate, regular rhythm and no murmurs Cardio Narrative: 2+ bilateral DP pulses GI normal to inspection, nondistended, normoactive bowel sounds, soft to palpation and non-tender Back/Spine Back/Spine Narrative: No midline tenderness. No CVA tenderness. Patient has reproducible left lower lumbar tenderness to palpation around the area of L4 and L5. Positive ipsilateral and contralateral straight leg test for reproducing the back pain however it does not cause any radiation of pain down her legs. Lumbar Spine / Lower Back: Negative for ROM limited Extremity normal to inspection Extremity Narrative: No deformity of the legs. No decreased range of motion of the lower extremities. General Extremety ED: Negative for edema or tenderness General Extremity: Negative for edema Neuro oriented x3 and no sensory deficits noted Sensorium / Orientation: alert Motor Exam: strength 5/5 throughout Psych mental status grossly normal Mood & Affect: tearful Skin no rashes or lesions noted and no wounds MDM MDM MDM Narrative Medical decision making narrative: Patient evaluated for atraumatic low back pain on the left that is been present for the past week. Is significantly worsened today. Physical exam is really consistent with spasms. Patient does seem quite uncomfortable upon arrival in she is mildly hypertensive and tachycardic. Pain is highly reproducible with direct palpation of the left lumbar area. She does not have midline tenderness. She does not have findings consistent or concerning for cauda equina syndrome and I do not think she requires any imaging given that she has not had any trauma and does not have any acute neurologic symptoms. Patient initially was given a dose of IM morphine as well as Zanaflex as I suspect her pain is more muscle skeletal in nature and could be a spasm. After initial dosage she seemed more comfortable but states she has not had any pain relief. I will check a urinalysis to ensure that there is no hematuria or infection even though I have very low suspicion for renal colic or pyelonephritis/bladder infection. Urinalysis is largely normal. She is given additional dose of IM Dilaudid and now has significant improvement of her symptoms. Will be discharged home with burst of steroids as well as a prescription for Zanaflex. Encouraged follow-up with her primary care doctor. Encouraged alternate ibuprofen and Tylenol at home. While patient has an allergy to meloxicam she states she can take Aleve at home or naproxen without any issues. Encouraged to use a heating pad for her back. Counseled on return precautions. Lab Data Attestation: I reviewed the patient's lab results. Labs: Laboratory Results - last 24 hr 06/26/22 13:20 Urine Color Yellow Urine Clarity Clear Urine pH 6.0 Ur Specific [place] 1.015 Urine Protein Negative Urine Glucose (UA) Normal Urine Ketones Negative Urine Occult Blood Negative Urine Nitrite Negative Urine Bilirubin Negative Urine Urobilinogen Normal Ur Leukocyte Esterase Negative Urine RBC 0 SEEN Urine WBC 0 SEEN Ur Squamous Epith Cells 0-5 SEEN Urine Bacteria 0 SEEN Urine Mucus 0 SEEN Discharge Plan Triage Chief Complaint: Back ED Provider: Samantha Alexander Dx/Rx/DC Orders Clinical Impression: Pain in left lumbar region of back, Back muscle spasm Instructions: ED Back Spasm, No Trauma Prescriptions: New tizanidine 4 mg capsule 4 mg PO Q8H PRN (Reason: muscle spasticity) Qty: 20 0RF prednisone 20 mg tablet 40 mg PO DAILY Qty: 10 0RF No Action lisinopril-hydrochlorothiazide [Zestoretic] 1 EACH tablet 1 ea PO DAILY Label Comments: naproxen 250 MG tablet 500 mg PO DAILY PRN PRN (Reason: Pain) Label Comments: atorvastatin 80 MG tablet 80 mg PO DAILY Qty: 30 0RF aspirin 81 MG tablet,chewable 81 mg PO DAILY@0800 Qty: 30 0RF Primary Care Provider: Kareen Cooper Referrals: Kareen Cooper MD [Primary Care Provider] - Disposition Disposition: Home, Self Care Discharge Date/Time: 06/26/22 14:15
[2022-06-26] MEDS: HYDROmorphone 0.5 MG/0.5 ML SYRINGE IM (13:10)
[2022-06-26 13:27] LABS: Bacteria 0 SEEN /hpf (None Seen); Mucous, Urine 0 SEEN /hpf (<or=2+); Red Blood Cells-Urine 0 SEEN /hpf (0-5); White Blood Cells 0 SEEN /hpf (0-5)
[2022-06-26 13:41] LABS: Color, Urine Yellow (Yellow); Glucose, Dipstick Normal (Normal); Ketone-Dipstick Negative (Negative); Protein-Dipstick Negative (Negative); Specific Gravity, Urine 1.015 (1.002-1.030); Urine Bilirubin Dipstick Negative (Negative); Urine Clarity Clear (Clear)
[2022-06-26 13:42] LABS: Leukocyte Esterase-Dipstick Negative /ul (Negative); Nitrite-Dipstick Negative (Negative); Occult Blood-Urine Negative /ul (Negative); Urine Urobilinogen Normal (Normal)
[2022-06-26 13:43] LABS: Squamous Epithelial Cells - UA 0-5 SEEN /hpf (5-10)
[2022-06-26 14:15] VITALS: PULSE 85; O2SAT 93
== END 2022-06-26 14:15 | disposition home or self-care (01) ==
PROVIDERS: Emergency Provider Emergency Medicine; PCP Internal Medicine; Visit Provider Emergency Medicine
DX: M62.830 Muscle spasm of back (principal); I10 Essential (primary) hypertension; E78.00 Pure hypercholesterolemia, unspecified; F17.210 Nicotine dependence, cigarettes, uncomplicated; Z79.82 Long term (current) use of aspirin; Z79.899 Other long term (current) drug therapy
CPT/HCPCS: 81001; 96372; 99283